=== PATIENT | male | born 1990 | race Caucasian/White ===

== ENCOUNTER 2023-12-13 01:11 | Day surgery (SDC) | payer OTHER, SELFPAY ==
[2023-11-30 15:50] VITALS: BMI 27.7
[2023-12-13 09:20] VITALS: BP 115/68; PULSE 67; RESP 20; TEMP 36.2; O2SAT 100
[2023-12-13] MEDS: LACTATED RINGERS 1,000 ML 150 ML IV CONT (09:29)
--- NOTE | 2023-12-13 09:41 | PM.HPGS ---
History of Present Illness History of Present Illness Consent: Risks, benefits, and alternatives have been discussed and questions answered. Patient agrees to proceed with procedure. Chief complaint: Family history colon polyps, Family history colon Narrative: Jeremy Ewing is a 33 year old male here for first colonoscopy, father had colon polyp at 35 yo and his grandfather colon cancer Review of Systems Review of Systems: All systems reviewed & are unremarkable except as noted in HPI and below PMFSH Past Medical History Medical History (Updated 12/13/23 @ 09:42 by Zi Carvalho MD) Family hx colonic polyps Social History Social History Smoking status: Never smoker Alcohol intake: current Drinks per week: 3 Alcohol use details: BEERS Substance use: never Substance use type: does not use Living arrangements: with family Spiritual care concerns: No Meds Home Medications and Allergies Home Medications Medication Instructions Recorded Confirmed Type multivit with minerals-iron 18 1 tablet PO DAILY 11/30/23 11/30/23 History mg-folic ac 400 mcg-vit K 25 mcg tablet (Adults Multivitamin) Allergies Allergy/AdvReac Type Severity Reaction Status Date / Time No Known Allergies Allergy Verified 12/13/23 09:19 Vital Signs Vital Signs - 24 hr 12/13/23 09:20 Temperature 97.2 F L Pulse Rate 67 Respiratory Rate 20 Blood Pressure 115/68 Pulse Oximetry 100 Oxygen Delivery Room Air Exam Const: General: comfortable and no acute distress HENMT: Face/Nose/Sinus: Normal nares present Eyes: General: appearance normal, both eyes and all related structures Neck: Neck: no JVD Resp: Auscultation: clear to auscultation bilaterally Cardio: Rate: regular rate Rhythm: regular rhythm GI: Inspection: non-distended GI Palp: Yes Soft to palpation Skin: General skin exam: normal color Neuro: General: gait normal Speech: normal speech Extrem: General: normal to inspection Psych: Mental Status: mental status grossly normal Assessment and Plan Assessment and plan (1) Family hx colonic polyps: Code(s): Z83.719 - Family history of colon polyps, unspecified Status: Acute Assessment and Plan: colonoscopy
--- NOTE | 2023-12-13 09:56 | P.PNAN_ITS ---
Anes - Initial Pre Proc Eval Procedure: Operation Date: 12/13/23 10:30 Proposed Procedures p Colonoscopy - Zi Carvalho MD Date/Time: 12/13/23 09:56 Surgeon: Zi Carvalho MD Pre Op Diagnosis: Family history colon polyps, Family history colon Patient Data Age: 33 Gender: M Height: 1.85 m Weight: 97 kg Last Vital Signs Temp 97.2 F L 12/13/23 09:20 Pulse 67 12/13/23 09:20 Resp 20 12/13/23 09:20 BP 115/68 12/13/23 09:20 Pulse Ox 100 12/13/23 09:20 O2 Del Method Room Air 12/13/23 09:20 Allergies Allergy/AdvReac Type Severity Reaction Status Date / Time No Known Allergies Allergy Verified 12/13/23 09:19 Home Medications Medication Instructions Recorded Confirmed Type multivit with minerals-iron 18 1 tablet PO DAILY 11/30/23 11/30/23 History mg-folic ac 400 mcg-vit K 25 mcg tablet (Adults Multivitamin) Patient hx anesthesia problems: none Family hx anesthesia problems: none Results Review: All pre-operative results and documents have been reviewed as part of the pre- operative evaluation. [facility] Past Medical History Medical History (Updated 12/13/23 @ 09:42 by Zi Carvalho MD) Family hx colonic polyps Social History Social History Smoking status: Never smoker Alcohol intake: current Drinks per week: 3 Alcohol use details: BEERS Substance use: never Substance use type: does not use Living arrangements: with family Spiritual care concerns: No Anes - Eval Final PreProcedure Day of Procedure 12/13/23 09:56 Patient weight: normal Heart: regular rate and rhythm Lungs: clear to auscultation Airway: Mallampati scale class II Neurological: alert and oriented Last oral intake: >/= 8 hours ASA classification: II Emergent: no Anesthetic plan: proceed Anesthesia type and monitoring: general GIVS and standard monitoring Results Review: All pre-operative results and documents have been reviewed as part of the pre- operative evaluation. Informed Consent: The patient's anesthetic plan and its attendant risks and benefits were discussed with the patient/family/POA. Questions were solicited and answers provided to the satisfaction of the patient/family/POA.
[2023-12-13 09:58] VITALS: BP 87/61; PULSE 78; RESP 20; O2SAT 91
[2023-12-13 10:07] VITALS: BP 90/61; PULSE 70; RESP 20; O2SAT 98
[2023-12-13 10:17] VITALS: BP 100/61; PULSE 65; RESP 20; O2SAT 98
== END 2023-12-13 10:30 | disposition home or self-care (01) ==
PROVIDERS: PCP Internal Medicine; Visit Provider Internal Medicine Gastroenterology
PROC: 0DJD8ZZ Inspection of Lower Intestinal Tract, Via Natural or Artificial Opening Endoscopic (ICD-10-PCS; CPT 45378; principal; 2023-12-13 10:30)
DX: Z12.11 Encounter for screening for malignant neoplasm of colon (principal); D12.5 Benign neoplasm of sigmoid colon; K64.8 Other hemorrhoids; Z83.719 Family history of colon polyps, unspecified
CPT/HCPCS: 45385; 88305; J2704; J7120